=== PATIENT | male | born 1940 | race Caucasian/White ===

== ENCOUNTER 2018-06-03 07:36 | Outpatient (CLI) | payer MEDICARE, OTHER ==
--- NOTE | 2018-06-03 08:39 | RAD ---
F5 view cervical spine. HISTORY: Cervical radiculopathy M54.12 AP, lateral, open-mouth odontoid, flexion and extension views cervical spine. Disc space height loss seen at the C5-6 and C6-7 levels. There is approximately 2 mm of anterolisthes is of C5 on C6. No evidence of acute cervical spine fractures or subluxations seen. No evidence of prevertebral soft tissue swelling seen. IMPRESSION: C5-6 and C6-7 changes of spondylosis.
--- NOTE | 2018-06-03 09:17 | RAD ---
LUMBAR SPINE: HISTORY: Lumbar radiculopathy. COMPARISON: None. TECHNIQUE: A total of four views. AP views were obtained. Lateral views were obtained in the neutral, flexion, and extension positions. FINDINGS: There are pedicle screws and rods in place from T11 through L5. There is an interbody implant at L4- L5. There is wedge compression of the T10 and T11 vertebrae. The lumbar vertebrae maintain height. Dege nerative changes are noted. Laminectomy changes are seen. Posterior alignment is preserved with fle xion and extension. IMPRESSION: Postoperative and degenerative changes of the lumbar spine, as described. POS: [facility]
--- NOTE | 2018-06-03 11:09 | MRI ---
MRI CERVICAL SPINE WITHOUT CONTRAST: HISTORY: Bilateral leg and arm pain. Neck and back pain. COMPARISON: None. TECHNIQUE: A cervical spine MRI is performed without intravenous Gadolinium administration. Multisequential, mu ltiplanar imaging is performed. FINDINGS: Appropriate T1 marrow signal intensity of the cervical vertebrae. Cervical spine vertebral body heig ht is maintained. There is no fracture. No significant STIR hyperintensity to suggest vertebral bod y edema or ligamentous injury. There is 2.2 mm of anterolisthesis of C5 upon C6. The visualized brain parenchyma, cervicomedullary junction, cervical cord, and upper thoracic cord bahena ve normal size and signal intensity. C2-C3: No significant central canal stenosis. The foramina are patent. C3-C4: No significant central canal stenosis. Zysne-tciqhpr-xvtt-left facet hypertrophy. There is moderate bilateral foraminal narrowing. C4-C5: There is a broad-based disk bulge without significant central canal stenosis. Mild right for aminal narrowing. Left neural foramen is patent. C5-C6: Broad-based disk osteophyte complex abuts the thecal sac. No significant central canal steno sis. The neural foramina are patent. C6-C7: Broad-based disk osteophyte complex with a small left and right paracentral component. There is mild deformity of the right hemicord, without abnormal signal. There is no significant central c anal stenosis. The right neural foramen is mildly narrowed. There is moderate left foraminal narrow ing. C7-T1: No significant central canal stenosis or neural foraminal narrowing. IMPRESSION: Degenerative changes of the cervical spine, as detailed above. The greatest degree of central canal stenosis is at C6-C7, where there is slight mass effect upon the right hemicord. POS: [facility]
--- NOTE | 2018-06-03 11:25 | CT ---
FNoncontrast enhanced images lumbar spine. HISTORY: Lumbar radiculopathy M54.19. Axial images were obtained with coronal and sagittal reconstructions. CT images demonstrate bilateral pedicle surgical hardware fusing the T11, T12, L1, L2, L3, L4 and L5 levels. L4-[address] The patient has had T12, L1, L2, L3, L4 laminotomies. The pedicle hardware is in good position without evidence of loosening. No evidence of acute or chron ic lumbar spine fracture seen. There is severe changes of spondylosis above the fusion level at T10-1 1 level. IMPRESSION: extensive lumbar and lower thoracic surgical changes. No evidence of hardware loosening o r significant spinal malalignment seen.
--- NOTE | 2018-06-03 11:29 | CT ---
FCT thoracic spine. History is lumbar radiculopathy M54.19 patient has had previous history of thoracolumbar fusion. Axial images are obtained with coronal and sagittal reconstructions. Surgical hardware is seen at the T11 and T12 levels of the thoracic spine. Extensive anterior osteophytes seen at the T7, T8, T9, T10 and T11 levels. There is a disc space heig ht loss with vacuum disc changes and endplate irregularity at T10-11 level. No evidence of thoracic spine fracture seen. IMPRESSION: Lower thoracic fusion with severe area of spondylosis above the fusion level at T10-11.
--- NOTE | 2018-06-03 11:59 | MRI ---
[facility] lumbar spine with and without contrast: 06/03/2018 HISTORY: 78-year-old male with lumbar radiculopathy FINDINGS: There are bilateral pedicle screws at T11, T12, L1, L2, L3, L4, and L5. The hardware at levels from T 11 through L3 are ferromagnetic, causing severe magnetic susceptibility blowout artifact such that th ose levels cannot be evaluated. There is much less magnetic susceptibility artifact involving the ped icle screws at L4 and L5, and it is assumed that these are of titanium, with little or no ferromagnet ic components. Review of CT demonstrates 5 lumbar type vertebrae. Vertebral body heights are maintain ed. There is no major spondylolisthesis. Irregular shaped osseous lesion at posterior aspect of right iliac bone probably represents bone graft harvest donor site. L3-4: Mild to moderate disc space narrowing. Probable midline laminectomy defect. Probably no high-gr carlitos central spinal canal stenosis, broad difficult to evaluate spinal canal due to the blowout artifa ct. L4-5: Interbody cage within the obliterated disc space across which there has been successful ankylos es between the adjacent endplates. Midline laminectomy defect results in generous caliber of the spin al canal and thecal sac. No high-grade neural foraminal stenosis. L5-S1: No central stenosis. Mild to moderate right lateral recess stenosis. No left lateral recess st enosis. No high-grade neural foraminal stenosis. Disc spaces maintained. No abnormal, unexpected enha ncement identified at levels inferior to L3-4. IMPRESSION: 1. Bilateral pedicle screws at all levels from T11 through L5. 2. The hardware from T11 through L3 is ferromagnetic, causing severe bilateral artifact, making the i mages nondiagnostic through those levels. 3. The hardware at L4 and L5 has little or no ferromagnetic material. 4. Status post midline laminectomy and successful interbody cage vertebral body fusion at L4-5. 5. No central stenosis or high-grade neural foraminal stenosis at L4-5 and L5-S1.
--- NOTE | 2018-06-03 12:07 | MRI ---
[facility] thoracic spine with and without contrast: 06/03/2018 HISTORY: Back pain and thoracic radiculopathy. FINDINGS: There are bilateral pedicle screws at T11 and T12 causing magnetic susceptibility artifact, rendering evaluation of levels inferior to T10-11 nondiagnostic. At T10-11 there is severe disc space narrowing, endplate irregularity, moderate ligamentum flavum thi ckening, and broad-based disc bulge-osteophytic bar complex that protrudes into the spinal canal, abu tting the spinal cord, causing moderate central spinal canal stenosis and moderate bilateral neural f oraminal stenosis. There is no high-grade central spinal canal stenosis at any other level in the tho racic spine. Vertebral body heights are maintained. The thoracic spinal cord is normal in size and si gnal, with no abnormal enhancement, superior to the T10 level. Multilevel mild discogenic degenerativ e changes are present throughout most levels of the thoracic spine. There are multiple levels of mild and moderate bilateral neural foraminal stenosis throughout the thoracic spine. IMPRESSION: 1. Status post hardware pedicle screw fusion at T11 and all levels inferior to it. Unable to evaluate T11 and lower levels due to magnetic susceptibility artifact. 2. High-grade degenerative disc disease at T10-11 causing at least moderate central spinal canal sten osis and moderate neural foraminal stenosis. 3. Mild spondylosis throughout all levels superior to this.
== END 2018-06-03 07:37 | disposition home or self-care (01) ==
LOC: TBSIIMAG 07:36
PROVIDERS: ATTEND Surgery
DX: M47.26 Other spondylosis with radiculopathy, lumbar region (principal); M54.12 Radiculopathy, cervical region; M47.24 Other spondylosis with radiculopathy, thoracic region; Z98.890 Other specified postprocedural states
CPT/HCPCS: 72050; 72110; 72128; 72131; 72141; 72157; 72158; 82565

== ENCOUNTER 2019-01-21 10:41 | Day surgery (SDC) | payer MEDICARE, OTHER ==
[2019-01-20 09:19] VITALS: BMI 31.4
[2019-01-21] MEDS ORDERED: Bupivacaine HCl 0.5%/Epinephrine 1:200,000/PF 30 ml Vial ONE (12:47)
[2019-01-21] MEDS ORDERED: Meperidine HCl/PF 25 MG/ML VIAL ONE (12:57)
[2019-01-21] MEDS ORDERED: Midazolam HCl 2 mg/2 ml Vial ONE (12:57)
[2019-01-21] MEDS ORDERED: Propofol 1,000 MG/100 ML VIAL IV ONE (12:57)
[2019-01-21] MEDS ORDERED: PROPOFOL 200 MG/20 ML VIAL ONE (14:27)
--- NOTE | 2019-01-21 15:27 | RAD ---
EXAM: XR Thoracic Spine 2 View DATE: 01/21/2019 12:00 AM INDICATION: Dorsal column stimulator placement COMPARISON: CT thoracic spine dated June 03, 2018 FINDING: There are dorsal column stimulator leads projecting up to the T6 vertebral level. The leads project in the expected position. The total fluoroscopic time was 6 minutes 52 seconds. Total exposure was 74.1 mGy. IMPRESSION:Fluoroscopy utilized for dorsal column stimulator lead placement.
--- NOTE | 2019-01-21 22:12 | OP ---
DATE OF PROCEDURE: 01/21/2019 PREOPERATIVE DIAGNOSES: 1. Postlaminectomy syndrome. 2. Chronic pain syndrome. 3. Lumbar radiculopathy. POSTOPERATIVE DIAGNOSES: 1. Postlaminectomy syndrome. 2. Chronic pain syndrome. 3. Lumbar radiculopathy. PROCEDURES PERFORMED: 1. Spinal cord stimulator implant x1. 2. Spinal cord stimulator lead implant x2. BLOOD LOSS: Minimal. DESCRIPTION OF PROCEDURE: The patient was taken to the operating room and placed prone on the operating room table. A time-out was performed. The back was prepped with DuraPrep and sterile drapes were applied. Using fluoroscopy, we located the interspace of T10 and L1. We anesthetized the skin and made a vertical incision down to the fascia. We then inserted the supplied 14-gauge Touhy needle in a paramedian technique and advanced this to the interspinous ligament using loss of resistance to air. We gained access to the epidural space. We then threaded an 8-contact lead up the midline dorsal epidural space taking lateral and AP views to the midbody of T6. We placed a contralateral lead in the exact same fashion on the other side to have 2 parallel leads. We performed testing intraop with the patient awake and the patient noted paresthesia in all pain areas. Anchors were then placed over the leads and brought down to the fascia. These were clicked to secure them to the leads. These were then secured to the fascial layer using 2-0 silk suture x2 each. A battery pocket was made in the right buttock anesthetizing the skin and making a horizontal incision. We blunt dissected this down the Donna fascia and then dissected inferiorly and superiorly to make a pocket. We used a tunneling device to connect the 2 incisions and threaded the lead through this tunneling device to the battery pocket. We connected the leads to the battery and torqued them down to secure them to the battery. Testing was performed and all impedances were good. The battery was slipped into the pocket easily. We used 2-0 Vicryl suture in simple interrupted fashion to approximate the fascial layer. We used brenda for the skin and sterile 4x4s and Medipore tape as dressing. The patient was taken to PACU under stable condition. Job ID: [id number]
--- NOTE | 2019-01-24 16:17 | EKG ---
Test Reason : PREOP Blood Pressure : / mmHG Vent. Rate : 051 BPM Atrial Rate : 051 BPM P-R Int : 180 ms QRS Dur : 110 ms QT Int : 438 ms P-R-T Axes : 033 -30 -17 degrees QTc Int : 403 ms Sinus bradycardia Left axis deviation Abnormal ECG No previous ECGs available Confirmed by DR. Monserrat MERCADO ([id number]) on 01/24/2019 4:17:39 PM Referred By: LC Confirmed By:DR. Monserrat MERCADO
== END 2019-01-21 16:00 | disposition home or self-care (01) ==
LOC: SDC 10:41
PROVIDERS: ATTEND Specialist
PROC: 0JH70BZ Insertion of Single Array Stimulator Generator into Back Subcutaneous Tissue and Fascia, Open Approach (ICD-10-PCS; principal; 2019-01-21)
PROC: 00HU0MZ Insertion of Neurostimulator Lead into Spinal Canal, Open Approach (ICD-10-PCS; 2019-01-21)
DX: M96.1 Postlaminectomy syndrome, not elsewhere classified (principal); G89.4 Chronic pain syndrome; M54.16 Radiculopathy, lumbar region; I10 Essential (primary) hypertension; F32.9 Major depressive disorder, single episode, unspecified; M19.90 Unspecified osteoarthritis, unspecified site; E78.00 Pure hypercholesterolemia, unspecified; Z87.891 Personal history of nicotine dependence; Z79.1 Long term (current) use of non-steroidal anti-inflammatories (NSAID); Z79.84 Long term (current) use of oral hypoglycemic drugs; Z79.899 Other long term (current) drug therapy; Z88.2 Allergy status to sulfonamides; Z98.1 Arthrodesis status
CPT/HCPCS: 63650 ×2; 63685; 72070; 76000; 93005; C1767; C1778; 93010; J0670; J2175; J2250; J2704

== ENCOUNTER 2019-08-30 06:29 | Outpatient (CLI) | payer MEDICARE, OTHER ==
[2019-08-31 13:47] LABS: SARS-CoV-2 MS2 Positive; SARS-CoV-2 N Gene Negative; SARS-CoV-2 S Gene Negative; SARS-CoV-2 orf1ab Negative
== END 2019-08-30 06:30 | disposition home or self-care (01) ==
LOC: LABBT 06:29
PROVIDERS: ATTEND Specialist
DX: Z01.812 Encounter for preprocedural laboratory examination (principal); Z11.59 Encounter for screening for other viral diseases; M54.16 Radiculopathy, lumbar region; M96.1 Postlaminectomy syndrome, not elsewhere classified; G89.29 Other chronic pain
CPT/HCPCS: 87635; U0003

== ENCOUNTER 2019-09-02 09:38 | Day surgery (SDC) | payer MEDICARE, OTHER ==
[2019-08-27 13:40] VITALS: BMI 31.4
[2019-09-02] MEDS ORDERED: Glycopyrrolate 0.2 MG/ML 5 ML SYRINGE ONE (10:53)
[2019-09-02] MEDS ORDERED: CEFAZOLIN 1 GM VIAL ONE (11:36)
[2019-09-02] MEDS ORDERED: Sodium Chloride 0.9% 100 ML ONE (11:37)
[2019-09-02] MEDS ORDERED: Bupivacaine PF 0.5% 30 ML VIAL ONE ×2 (11:53→14:05)
[2019-09-02] MEDS ORDERED: EPINEPHrine 1 MG/ML AMP ONE (11:53)
[2019-09-02] MEDS ORDERED: Propofol 1,000 MG/100 ML VIAL IV ONE (12:10)
[2019-09-02] MEDS ORDERED: Fentanyl 100 MCG/2 ML VIAL ONE (12:10)
[2019-09-02] MEDS ORDERED: Sodium Chloride 0.9% 10 ML ONE (13:25)
[2019-09-02] MEDS ORDERED: Morphine 2 MG/ML SYRINGE ONE ×2 (16:00→16:27)
--- NOTE | 2019-09-02 17:39 | RAD ---
THORACIC SPINE TWO VIEWS: 09/02/19 HISTORY: Intraoperative films. These show placement of a dorsal column stimulator which is on the C-arm views in the region of the m id thoracic spine. IMPRESSION: Placement of dorsal column stimulator. POS: [facility]
--- NOTE | 2019-09-03 01:44 | OP ---
DATE OF PROCEDURE: 09/02/2019 PREOPERATIVE DIAGNOSES: 1. Chronic pain syndrome. 2. Postlaminectomy syndrome. 3. Lumbar radiculopathy. POSTOPERATIVE DIAGNOSES: 1. Chronic pain syndrome. 2. Postlaminectomy syndrome. 3. Lumbar radiculopathy. PROCEDURES PERFORMED: 1. Spinal cord stimulator battery replacement. 2. Spinal cord stimulator lead revision replacement x2. SPECIMENS REMOVED: 1. Spinal cord stimulator battery intact. 2. Spinal cord stimulator leads x2 intact. 3. Spinal cord stimulator anchors x2 intact. ESTIMATED BLOOD LOSS: 20 mL. DESCRIPTION OF PROCEDURE: The patient was taken to the procedure room and placed prone on the procedure room table. A time-out was performed. We used ChloraPrep to prep the back, and sterile drapes were applied. We anesthetized the skin over the previous battery pocket, and a 10 blade scalpel was used to make an incision. This was blunt dissected down to the battery pocket. The battery was released and brought to the surface. We then used a torque wrench to unscrew the fixating screws on the battery. The leads were taken out; however, upon doing so, we noticed that one of the screws that was fixating the lead to the battery had broken. This made the battery inoperable. Therefore, the battery was placed in a biohazard bag and was being sent back to the company for analysis. The leads were then tested, and they were noted to not have high impedances, which is a sign that they were likely both fractures. We anesthetized the skin over the previous anchor sites and made an incision. We blunt dissected this down to fascia and released the anchors from the fascia. We then gently pulled on the lead removing the leads from the epidural space intact. These were removed from the patient's body intact and placed in biohazard bag and sent back to the company for analysis. The anchors were also placed in the same bag and were being sent back to the company for analysis. At this point, we went onto placing the new leads. We used an RX Coude 14-gauge needle in a paramedian technique to engage in the inner spinous ligament of T9-10. Once engaged in the ligament, loss of resistance to air to achieve access to the epidural space. This was done on the contralateral side on the exact same fashion. We then threaded a new 8-contact [place] lead up the midline dorsal epidural space under continuous fluoroscopy to the midbody of T6, and this was where the leads were previously. We placed two parallel leads using Touhy needles that were placed in paramedian fashion. We used fluoroscopy to take AP and lateral views to ensure proper placement. The leads were tested and impedances were all good. We then removed the needles, taking care not to move the leads. Once the needles were removed, we used an anchor and placed this over the lead and slid this down to fascia. The anchor was clicked, which fixated up to the lead. We then used 2-0 silk suture x2 to tie the anchor to the fascia. We then used a tunneling device to make a tunnel between the lead incision in the battery pocket incision. The leads were taken through this tunnel to the battery pocket. There was plenty of slack on the leads. We inserted the lead into the new battery, and we used a torque wrench to torque the screws down to fixate the lead to the battery. Impedances were checked which were all good. We slid laterally into the pocket loosely, reapproximated the deep fascia layers with 2-0 Vicryl sutures in a horizontal mattress fashion. We used 2-0 Vicryl sutures for the superficial fascia layer, approximated with simple interrupted sutures. Then we used a 3-0 Rapide to close the subcuticular layer, and we used Dermabond as an occlusive dressing. Once this was dry, we placed sterile 4x4s over the top and placed Medipore tape on them. The patient was taken to Day Stay under stable condition without any apparent complications noted at this time. Job ID: [id number]
== END 2019-09-02 16:50 | disposition home or self-care (01) ==
LOC: SDC 09:38
PROVIDERS: ATTEND Specialist
PROC: 00PU3MZ Removal of Neurostimulator Lead from Spinal Canal, Percutaneous Approach (ICD-10-PCS; principal; 2019-09-02)
PROC: 00HU3MZ Insertion of Neurostimulator Lead into Spinal Canal, Percutaneous Approach (ICD-10-PCS; 2019-09-02)
PROC: 0JPT0MZ Removal of Stimulator Generator from Trunk Subcutaneous Tissue and Fascia, Open Approach (ICD-10-PCS; 2019-09-02)
PROC: 0JH70DZ Insertion of Multiple Array Stimulator Generator into Back Subcutaneous Tissue and Fascia, Open Approach (ICD-10-PCS; 2019-09-02)
DX: G89.4 Chronic pain syndrome (principal); M96.1 Postlaminectomy syndrome, not elsewhere classified; M54.16 Radiculopathy, lumbar region; T85.112A Breakdown (mechanical) of implanted electronic neurostimulator of spinal cord electrode (lead), initial encounter; T85.113A Breakdown (mechanical) of implanted electronic neurostimulator, generator, initial encounter; Z79.84 Long term (current) use of oral hypoglycemic drugs; Z79.899 Other long term (current) drug therapy; Z88.2 Allergy status to sulfonamides
CPT/HCPCS: 63663; 63685; 72070; 76000; 93005; C1767; C1778; 93010; J0171; J0690; J2270; J2704; J3010; J3490; S0020